=== PATIENT | male | born 1950 | race Two or more races ===

== ENCOUNTER 2021-10-04 16:57 | Inpatient (IN) | payer MEDICARE, MEDICAID ==
[~2021-10-04] VITALS: Ht 170.2 cm; Wt 64.9 kg
[2021-10-04] MEDS ORDERED: SODIUM CHLORIDE 0.9% 1,000 ML IV ONE (17:15)
[2021-10-04] MEDS ORDERED: IOHEXOL-350 100 ML BOTTLE ONE (17:21)
[2021-10-04] MEDS ORDERED: AMPICILLIN SOD/SULBACTAM NA 3 G in SODIUM CHLORIDE 0.9% 100 ML IV STA (17:46)
[2021-10-04] MEDS: ONDANSETRON HCL 4MG/2ML INJ IV STA ×2 (17:55→18:06)
[2021-10-04 18:14] LABS: BASOPHILS % 0.9 % (0.0-2.0); EOSINOPHILS % 2.2 % (0.0-5.0); HEMATOCRIT. 41.1 % (42.0-52.0); HEMOGLOBIN. 13.6 g/dL (14.0-18.0); LYMPHOCYTES % 27.8 % (20.0-50.0); MEAN CORPUSCULAR HEMOGLOBIN 28.4 pg (28.0-32.0); MEAN CORPUSCULAR VOLUME 85.6 fL (80.0-94.0); MEAN PLATELET VOLUME 7.5 fl (7.4-10.4); MONOCYTES % 6.8 % (2.0-8.0); NEUTROPHILS % 62.3 % (40.0-76.0); PLATELET 324 x1000/uL (130-400); RED CELL DISTRIBUTION WIDTH 13.9 % (11.6-14.6)
[2021-10-04 18:25] LABS: CHLORIDE 102 mEq/L (98-107)
[2021-10-04 18:36] LABS: PROTHROMBIN TIME 10.8 sec (9.6-11.0)
[2021-10-04] MEDS: TOBRAMYCIN/DEXAMETHASONE OPTH DROPS 2.5ML RIGHTEYE SCH ×2 (19:00→23:00)
[2021-10-04] MEDS ORDERED: MIDAZOLAM HCL 2 MG/2 ML VIAL IV ONE (19:30)
[2021-10-05] MEDS ORDERED: HYDROCODONE/ACETAMINOPHEN 5/325MG TABLET PO PRN
[2021-10-05] MEDS ORDERED: ONDANSETRON HCL 4MG/2ML INJ IV PRN
[2021-10-05] MEDS ORDERED: GUAIFENESIN 200MG/10ML SUGAR FREE UDC PO PRN
[2021-10-05] MEDS ORDERED: CLONIDINE 0.1MG TABLET PO PRN
[2021-10-05] MEDS ORDERED: ACETAMINOPHEN 325MG TABLET PO PRN ×2
[2021-10-05] MEDS ORDERED: IPRATROPIUM/ALBUTEROL 0.5-3(2.5)MG/3ML NEB NEB PRN
[2021-10-05] MEDS ORDERED: MAGNESIUM/ALUMINUM HYDROXIDE/SIMETHICONE 30ML UDC PO PRN
[2021-10-05] MEDS: SODIUM CHLORIDE 0.9% 1,000 ML IV SCH ×2 (01:15→11:51)
[2021-10-05] MEDS: TOBRAMYCIN/DEXAMETHASONE OPTH DROPS 2.5ML RIGHTEYE SCH ×2 (03:00→08:15)
[2021-10-05 05:47] LABS: CHLORIDE 106 mEq/L (98-107)
[2021-10-05 05:48] LABS: BASOPHILS % 0.9 % (0.0-2.0); EOSINOPHILS % 2.6 % (0.0-5.0); HEMATOCRIT. 37.9 % (42.0-52.0); HEMOGLOBIN. 12.5 g/dL (14.0-18.0); LYMPHOCYTES % 35.3 % (20.0-50.0); MEAN CORPUSCULAR HEMOGLOBIN 28.3 pg (28.0-32.0); MEAN CORPUSCULAR VOLUME 85.8 fL (80.0-94.0); MEAN PLATELET VOLUME 7.5 fl (7.4-10.4); MONOCYTES % 8.4 % (2.0-8.0); NEUTROPHILS % 52.8 % (40.0-76.0); PLATELET 288 x1000/uL (130-400); RED BLOOD CELL COUNT 4.41 mill/uL (4.7-6.1)
[2021-10-05 05:51] LABS: PHOSPHORUS 2.5 mg/dL (2.5-4.9)
[2021-10-05 08:45] VITALS: BP 110/60
[2021-10-05] MEDS ORDERED: NALOXONE HCL 0.4MG/ML VIAL IV PRN (09:15)
[2021-10-05 09:45] VITALS: BP 110/60
[2021-10-05] MEDS ORDERED: PANTOPRAZOLE SODIUM 40 MG/VIAL IV SCH (11:30)
[2021-10-05 12:00] VITALS: BP 108/62
[2021-10-05] MEDS ORDERED: AMLO5TAB88 PO (12:22)
[2021-10-05] MEDS ORDERED: VALS80TA30 PO (12:22)
[2021-10-05] MEDS ORDERED: MAGN100T6 PO (12:22)
[2021-10-05] MEDS ORDERED: FAMO40TA7 PO (12:22)
[2021-10-05] MEDS ORDERED: ONDA4SOL PO (12:22)
[2021-10-05] MEDS ORDERED: ONDA4TAB11 PO ×2 (12:22→16:43)
[2021-10-05] MEDS ORDERED: DIAZ5TAB4 PO (12:22)
[2021-10-05] MEDS ORDERED: BISA-81 PO (12:22)
[2021-10-05 14:47] LABS: TOTAL IRON BINDING CAPACITY 286 ug/dL (250-450)
[2021-10-05 15:17] LABS: FOLIC ACID (FOLATE) SERUM 11.6 ng/mL (>5.38)
[2021-10-05 16:00] VITALS: BP 112/87
[2021-10-05] MEDS ORDERED: ENOXAPARIN 40MG/0.4ML SYR SUBCUT SCH ×2 (17:00)
[2021-10-05] MEDS: METOCLOPRAMIDE HCL 10MG/2ML VIAL IV SCH (17:59)
[2021-10-05 20:00] VITALS: BP 112/59
[2021-10-05 22:00] VITALS: BP 100/62
[2021-10-06] VITALS (7 sets, daily range): BP systolic 110–125; BP diastolic 59–70
[2021-10-06] MEDS: METOCLOPRAMIDE HCL 10MG/2ML VIAL IV SCH ×2 (01:17→05:54)
[2021-10-06] MEDS: SODIUM CHLORIDE 0.9% 1,000 ML IV SCH (04:00)
[2021-10-06 06:52] LABS: BASOPHILS % 0.6 % (0.0-2.0); EOSINOPHILS % 1.7 % (0.0-5.0); HEMATOCRIT. 38.1 % (42.0-52.0); HEMOGLOBIN. 12.8 g/dL (14.0-18.0); LYMPHOCYTES % 28.9 % (20.0-50.0); MEAN CORPUSCULAR HEMOGLOBIN 28.8 pg (28.0-32.0); MEAN PLATELET VOLUME 8.2 fl (7.4-10.4); MONOCYTES % 7.2 % (2.0-8.0); NEUTROPHILS % 61.6 % (40.0-76.0); PLATELET 279 x1000/uL (130-400); RED BLOOD CELL COUNT 4.43 mill/uL (4.7-6.1)
[2021-10-06 06:53] LABS: CHLORIDE 108 mEq/L (98-107)
== END 2021-10-06 12:30 | disposition home or self-care (01) | DRG 392 ==
LOC: ER 16:57 → MICUSO 23:44 → 6WST 10-05 08:58
PROVIDERS: ADMIT Internal Medicine; ATTEND Internal Medicine
DX: R11.0 Nausea (principal); J98.11 Atelectasis; K57.90 Diverticulosis of intestine, part unspecified, without perforation or abscess without bleeding; E11.9 Type 2 diabetes mellitus without complications; G47.30 Sleep apnea, unspecified; I10 Essential (primary) hypertension; K21.9 Gastro-esophageal reflux disease without esophagitis; K40.20 Bilateral inguinal hernia, without obstruction or gangrene, not specified as recurrent; R26.89 Other abnormalities of gait and mobility; K76.89 Other specified diseases of liver; N20.0 Calculus of kidney; N28.1 Cyst of kidney, acquired; Z86.16 Personal history of COVID-19; I69.328 Other speech and language deficits following cerebral infarction; Z98.2 Presence of cerebrospinal fluid drainage device; I69.319 Unspecified symptoms and signs involving cognitive functions following cerebral infarction
CPT/HCPCS: 36415; 70496; 70498; 71045; 74018; 74176; 80048; 80053; 82607; 82728; 82746; 83540; 83550; 83735; 83880; 84100; 84145; 84484; 85025; 85044; 93005; 99291; C9113; J0295; J2250; J2405; J2765; J7030; J7050; Q9967